=== PATIENT | female | born 1980 | race Caucasian/White ===

== ENCOUNTER 2016-11-30 18:26 | Emergency (ER) | payer OTHER ==
[~2016-11-30] VITALS: Ht 167.6 cm; Wt 139.4 kg
[~2016-11-30 18:26] MED LIST: CALCITRIOL0.5 MCG PO; CALCIUM 500 MG1 EACH PO; CALTRATE 6001 TABLET PO; CEPHALEXIN500 MG PO; CIPRO250 MG PO; CITRACAL + D C1 EACH PO; CLONAZEPAM1 MG PO; COLACE100 MG PO; DEPAKOTE500 MG PO; DIVALPROEX SOD500 M1 PO; DIVALPROEX SOD500 MG PO; FIORICET,ESG1 TABLET PO; FLAGYL500 MG PO; HALOPERIDOL5 MG PO; HYDROXYZINE PAM50 MG PO; IBUPROFEN200 M1 PO; IBUPROFEN800 MG PO; KEFLEX500 MG PO; KLONOPIN1 MG PO; LEVOTHYROXINE300 MCG PO; MACROBID100 MG PO; METHYLDOPA250 MG PO; ONDANSETRON HCL4 MG PO; PERCOCET 5/31 TABLET PO; PERPHENAZINE8 MG PO; PRENATAL CAPSU1 EACH PO; PRENATAL TABLE1 EAC3 PO; PROMETHAZINE HC25 M1 PO; ROCALTROL0.5 MCG PO; SYNTHROID100 MCG PO; SYNTHROID200 MCG PO; TYLENOL EXTRA500 MG PO; ZOFRAN ODT4 MG PO; ZOFRAN4 MG PO
[2016-11-30 19:16] LABS: HEMATOCRIT 38.8 % (36.0-46.0); MCH 27.4 PG (29.0-34.0); MCHC 32.5 G/DL (30.0-36.0); MCV 84.3 FL (83-99); MEAN PLAT.VOLUME 11.2 uM^3 (9.5-12.4); PLATELET COUNT 293 K/uL (156-360); RBC DIS.WIDTH-CV 13.4 % (11.8-14.6); RBC DIS.WIDTH-SD 41.1 % (39-53); WHITE BLOOD COUNT 10.3 K/uL (4.1-10.2)
[2016-11-30 19:32] LABS: CHLORIDE 103 mEq/L (99-109); POTASSIUM 4.6 mEq/L (3.7-5.4); SODIUM 140 mEq/L (136-147)
[2016-11-30 19:34] LABS: GLUCOSE 85 mg/dL (70-99)
[2016-11-30 19:35] LABS: ANION GAP 9 MEQ/L (2-14)
[2016-11-30 19:37] LABS: SERUM ETHYL ALCOHOL < 10 mg/dL
[2016-11-30 19:38] LABS: GFR ESTIMATE (CALCULATED) 54 mL/min/
[2016-11-30 19:39] LABS: UREA NITROGEN (BUN) 16 mg/dL (9-23)
[2016-11-30 21:50] LABS: AMPHETAMINE NEGATIVE (500 ng/mL); BARBITURATES NEGATIVE (200 ng/mL); BENZODIAZEPINES NEGATIVE (150 ng/mL); COCAINE NEGATIVE (150 ng/mL); INTERNAL CONTROLS VALID? YES; METHADONE NEGATIVE (200 ng/mL); METHAMPHETAMINE NEGATIVE (500 ng/mL); OPIATES (MORPHINE) NEGATIVE (100 ng/mL); OXYCODONE NEGATIVE (100 ng/mL); PHENCYCLIDINE NEGATIVE (25 ng/mL); PROPOXYPHENE NEGATIVE (300 ng/mL); THC CANNABINOIDS NEGATIVE (50 ng/mL); TRICYCLIC ANTIDEPRESSANTS NEGATIVE (300 ng/mL)
[2016-12-01 01:19] LABS: SALICYLATE < 5.0 MG/DL (15-30)
[2016-12-01 01:25] LABS: QUANTITATIVE HCG < 4.0 MIU/ML
[2016-12-01 10:00] VITALS: BP 143/75
== END 2016-12-01 10:46 ==
LOC: EME 18:26
DX: F32.9 Major depressive disorder, single episode, unspecified (principal); R45.851 Suicidal ideations; I10 Essential (primary) hypertension; Z87.442 Personal history of urinary calculi; Z87.891 Personal history of nicotine dependence
CPT/HCPCS: 80048; 84702; 85027; 90837; 99281; 99285; G0480

== ENCOUNTER → 2017-01-16 | Outpatient (CLI) | payer MEDICARE, OTHER | END | disposition home or self-care (01) | LOC: CDC 11:18 | DX: I10 Essential (primary) hypertension (principal) | CPT/HCPCS: 93000 ==